=== PATIENT | male | born 2000 | race Caucasian/White ===

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

== ENCOUNTER 2019-05-03 11:29 | Emergency (ER) | payer OTHER ==
[~2019-05-03] VITALS: Ht 182.8 cm; Wt 122.5 kg
--- NOTE | ~2019-05-03 | EKG ---
[place], [place] ELECTROCARDIOGRAM REPORT NAME: OTIS CASTRO UNIT #: [id number] ROOM: DOCTOR: EPIPHANY DRAFT REPORT BIRTHDATE: [birth year] [facility] Test Date: 2019-05-03 Test Time: 11:52:17 Pat Name: OTIS CASTRO Department: Room: Gender: Media Relations Manager: April Bess : 2000 Requested By: STEVEN CASTILLO Order Number: [id number] Reading MD: Matthew Sanchez MD Measurements Intervals [place]: 86 P: 22 [place]: 139 QRS: -22 QRSD: 94 T: 10 QT: 351 QTc: 420 Interpretive Statements Marked sinus arrhythmia No previous ECG available for comparison Electronically Signed On 05-04-2019 8:34:22 PST by Matthew Sanchez MD CM:EKGRPT:ELECTROCARDIOGRAM REPORT [id number] STEVEN ALVAREZ DRAFT REPORT STEVEN CASTILLO M.D.
== END 2019-05-03 12:30 | disposition home or self-care (01) ==
LOC: ED 11:29
DX: T75.4XXA Electrocution, initial encounter (principal); W86.8XXA Exposure to other electric current, initial encounter; Y93.89 Activity, other specified; Y92.89 Other specified places as the place of occurrence of the external cause; Y99.0 Civilian activity done for income or pay

== ENCOUNTER 2020-11-09 21:55 | Emergency (ER) | payer SELFPAY | END 2020-11-09 22:41 | disposition home or self-care (01) | LOC: ED 21:55 | DX: J06.9 Acute upper respiratory infection, unspecified (principal) ==

== ENCOUNTER 2020-11-14 23:02 | Emergency (ER) | payer SELFPAY ==
[~2020-11-14] VITALS: Ht 182.8 cm; Wt 130.6 kg
[2020-11-15] MEDS ORDERED: ZITHROMAX250 MG PO (02:39)
== END 2020-11-15 03:05 | disposition home or self-care (01) ==
LOC: ED 23:02
DX: U07.1 COVID-19 (principal); J12.82 Pneumonia due to coronavirus disease 2019

== ENCOUNTER 2021-06-20 13:15 | Emergency (ER) | payer SELFPAY ==
[2021-06-20] MEDS ORDERED: VIBRA-TAB100 MG PO (13:59)
== END 2021-06-20 14:15 | disposition home or self-care (01) ==
LOC: ED 13:15
DX: L73.9 Follicular disorder, unspecified (principal)

== ENCOUNTER 2021-11-08 13:24 | Emergency (ER) | payer OTHER ==
[~2021-11-08 13:24] MED LIST changes: +VIBRA-TAB100 MG PO
[2021-11-08] MEDS ORDERED: Motrin,Rufen800 MG PO (18:29)
[2021-11-08] MEDS ORDERED: CYCLOBENZAPRINE5 M3 PO (18:29)
== END 2021-11-08 18:43 | disposition home or self-care (01) ==
LOC: ED 13:24
DX: S39.012A Strain of muscle, fascia and tendon of lower back, initial encounter (principal); W01.0XXA Fall on same level from slipping, tripping and stumbling without subsequent striking against object, initial encounter; Y93.89 Activity, other specified; Y92.89 Other specified places as the place of occurrence of the external cause; Y99.8 Other external cause status

== ENCOUNTER 2021-12-27 11:58 | Emergency (ER) | payer SELFPAY ==
[~2021-12-27] VITALS: Ht 182.8 cm; Wt 122.5 kg
[~2021-12-27 11:58] MED LIST changes: +CYCLOBENZAPRINE5 M3 PO
[2021-12-27] MEDS ORDERED: CEPHALEXIN500 M1 PO (14:05)
[2021-12-27] MEDS ORDERED: SEPTDS PO (14:05)
== END 2021-12-27 14:18 | disposition home or self-care (01) ==
LOC: ED 11:58
DX: L03.311 Cellulitis of abdominal wall (principal); L02.415 Cutaneous abscess of right lower limb

== ENCOUNTER 2023-02-17 14:48 | Emergency (ER) | payer OTHER ==
[~2023-02-17] VITALS: Ht 182.8 cm; Wt 127.0 kg
[~2023-02-17 14:48] MED LIST changes: +CEPHALEXIN500 M1 PO; +SEPTDS PO
[2023-02-17 16:05] LABS: BASO % 0.3 % (0.0-1.0); EOS % 0.4 % (1.0-4.0); HEMATOCRIT 49.1 % (42.0-52.0); LYMPH # 1.8 10*3/uL (1.3-4.4); LYMPH % 24.7 % (27.0-41.0); MEAN CELL VOLUME 86.3 fl (80.0-94.0); MEAN CORPUSCULAR HGB 28.8 pg (27.0-31.0); MEAN CORPUSCULAR HGB CONC 33.4 g/dl (33.0-37.0); MEAN PLATELET VOLUME 10.2 fl (9.6-12.3); MONO # 0.5 10*3/uL (0.1-1.0); MONO % 7.1 % (3.0-9.0); NEUT % 67.4 % (47.0-73.0); PLATELET COUNT AUTOMATED 197 10*3/uL (130-400); RED BLOOD COUNT 5.69 10*6/uL (4.50-5.90); RED CELL DISTRI WIDTH 13.2 % (0-14.5); WHITE BLOOD COUNT 7.4 10*3/uL (4.8-10.8)
[2023-02-17 16:28] LABS: ALKALINE PHOSPHATASE 137 U/L (46-116); BUN 10 mg/dl (9-23); CHLORIDE 107 mmol/L (98-107); LIPASE 34 U/L (12-53); POTASSIUM 4.3 mmol/L (3.4-5.1); SGPT/ALT 42 U/L (10-49); TOTAL PROTEIN 7.6 gm/dL (6.0-8.0)
[2023-02-17] MEDS ORDERED: MELOXICAM15 MG PO (16:47)
== END 2023-02-17 17:02 | disposition home or self-care (01) ==
LOC: ED 14:48
PROVIDERS: Emergency Medicine
DX: R10.11 Right upper quadrant pain (principal); F90.9 Attention-deficit hyperactivity disorder, unspecified type; F17.200 Nicotine dependence, unspecified, uncomplicated

== ENCOUNTER 2023-05-01 04:30 | Emergency (ER) | payer SELFPAY ==
[~2023-05-01] VITALS: Ht 185.4 cm; Wt 122.5 kg
[~2023-05-01 04:30] MED LIST changes: +MELOXICAM15 MG PO
[2023-05-01 04:50] LABS: BASO % 0.6 % (0.0-1.0); EOS # 0.1 10*3/uL (0.0-0.4); EOS % 1.7 % (1.0-4.0); HEMATOCRIT 48.9 % (42.0-52.0); LYMPH # 2.3 10*3/uL (1.3-4.4); LYMPH % 33.2 % (27.0-41.0); MEAN CELL VOLUME 87.9 fl (80.0-94.0); MEAN CORPUSCULAR HGB 28.8 pg (27.0-31.0); MEAN CORPUSCULAR HGB CONC 32.7 g/dl (33.0-37.0); MEAN PLATELET VOLUME 10.2 fl (9.6-12.3); MONO # 0.5 10*3/uL (0.1-1.0); MONO % 7.4 % (3.0-9.0); NEUT # 3.9 10*3/uL (2.3-7.9); PLATELET COUNT AUTOMATED 196 10*3/uL (130-400); RED BLOOD COUNT 5.56 10*6/uL (4.50-5.90); RED CELL DISTRI WIDTH 13.6 % (0-14.5); WHITE BLOOD COUNT 6.9 10*3/uL (4.8-10.8)
[2023-05-01 05:03] LABS: ACT PARTIAL THROMBO TIME 27.4 SECONDS (20.0-32.1)
[2023-05-01 05:15] LABS: ALKALINE PHOSPHATASE 132 U/L (46-116); BUN 12 mg/dl (9-23); CHLORIDE 108 mmol/L (98-107); ETHYL ALCOHOL < 3.0 mg/dl (<3); LIPASE 36 U/L (12-53); POTASSIUM 4.5 mmol/L (3.4-5.1); SGPT/ALT 63 U/L (5-49)
[2023-05-01 05:40] LABS: BILIRUBIN Negative (Negative); BLOOD Negative (Negative); CLARITY Clear (Clear); COLOR Yellow (Yellow); GLUCOSE Negative (Negative); KETONE Negative (Negative); LEUKO ESTERASE Negative (Negative); NITRITE Negative (Negative); PH 6.5 (4.5-8.0)
[2023-05-01 05:42] LABS: URINE AMPHETAMINES Negative (1000ng/ml); URINE BARBITURATES Negative (200ng/ml); URINE BENZODIAZEPINES Negative (200ng/ml); URINE CANNABINOIDS (THC) Negative (50ng/ml); URINE COCAINE Negative (300ng/ml); URINE METHADONE Negative (300ng/ml); URINE OPIATES Negative (300ng/ml); URINE PHENCYCLIDINE Negative (25ng/ml)
[2023-05-01 06:07] LABS: BACTERIA 1+; RBC 0-2 rbc/hpf (0-2); WBC 0-2 wbc/hpf (0-5)
[2023-05-01] MEDS ORDERED: PEPCID AC10 M2 PO (06:21)
== END 2023-05-01 06:23 | disposition home or self-care (01) ==
LOC: ED 04:30
PROVIDERS: Internal Medicine
DX: K21.9 Gastro-esophageal reflux disease without esophagitis (principal); F90.9 Attention-deficit hyperactivity disorder, unspecified type; Z79.899 Other long term (current) drug therapy

== ENCOUNTER 2023-05-05 14:37 | Emergency (ER) | payer SELFPAY ==
[~2023-05-05 14:37] MED LIST changes: +PEPCID AC10 M2 PO
== END 2023-05-05 16:59 | disposition home or self-care (01) ==
LOC: ED 14:37
DX: S69.91XA Unspecified injury of right wrist, hand and finger(s), initial encounter (principal); K21.9 Gastro-esophageal reflux disease without esophagitis; F90.9 Attention-deficit hyperactivity disorder, unspecified type; X50.1XXA Overexertion from prolonged static or awkward postures, initial encounter; Y93.89 Activity, other specified; Y92.89 Other specified places as the place of occurrence of the external cause; Y99.8 Other external cause status

== ENCOUNTER 2023-06-28 10:17 | Emergency (ER) | payer SELFPAY ==
[~2023-06-28] VITALS: Wt 122.5 kg
[2023-06-28] MEDS ORDERED: ONDANSETRON4 MG SL (12:33)
== END 2023-06-28 13:21 | disposition home or self-care (01) ==
LOC: ED 10:17
DX: K52.9 Noninfective gastroenteritis and colitis, unspecified (principal); F90.9 Attention-deficit hyperactivity disorder, unspecified type; R11.2 Nausea with vomiting, unspecified; R51.9 Headache, unspecified

== ENCOUNTER 2023-07-19 11:14 | Emergency (ER) | payer SELFPAY ==
[~2023-07-19] VITALS: Ht 182.8 cm; Wt 122.5 kg
[~2023-07-19 11:14] MED LIST changes: +ONDANSETRON4 MG SL
== END 2023-07-19 14:31 | disposition home or self-care (01) ==
LOC: ED 11:14
DX: M54.50 Low back pain, unspecified (principal); M54.6 Pain in thoracic spine; F90.9 Attention-deficit hyperactivity disorder, unspecified type

== ENCOUNTER 2023-09-18 07:48 | Emergency (ER) | payer SELFPAY ==
[~2023-09-18] VITALS: Ht 182.8 cm; Wt 122.5 kg
== END 2023-09-18 09:24 | disposition home or self-care (01) ==
LOC: ED 07:48
DX: B07.0 Plantar wart (principal); F90.9 Attention-deficit hyperactivity disorder, unspecified type

== ENCOUNTER 2023-11-25 13:18 | Emergency (ER) | payer SELFPAY ==
[~2023-11-25] VITALS: Ht 185.4 cm; Wt 127.0 kg
[2023-11-25] MEDS ORDERED: Ketorolac Tromethamine 15 MG/ML VIAL IV ONE (13:45)
[2023-11-25] MEDS ORDERED: SODIUM CHLORIDE 0.9% 1,000 ML IV ONE (13:45)
[2023-11-25 13:46] LABS: BILIRUBIN Negative (Negative); BLOOD Negative (Negative); CLARITY Clear (Clear); COLOR Yellow (Yellow); GLUCOSE Negative (Negative); KETONE Negative (Negative); LEUKO ESTERASE Negative (Negative); NITRITE Negative (Negative); PH 5.5 (4.5-8.0); SPECIFIC GRAVITY 1.025 (1.001-1.030); UROBILINOGEN 0.2 E.U./dl (0.0-1.0)
[2023-11-25 13:57] LABS: BASO % 0.6 % (0.0-1.0); EOS # 0.1 10*3/uL (0.0-0.4); EOS % 1.2 % (1.0-4.0); LYMPH # 1.3 10*3/uL (1.3-4.4); LYMPH % 26.5 % (27.0-41.0); MEAN CELL VOLUME 84.1 fl (80.0-94.0); MEAN CORPUSCULAR HGB 28.8 pg (27.0-31.0); MEAN CORPUSCULAR HGB CONC 34.2 g/dl (33.0-37.0); MEAN PLATELET VOLUME 10.2 fl (9.6-12.3); MONO # 0.4 10*3/uL (0.1-1.0); MONO % 7.3 % (3.0-9.0); NEUT # 3.2 10*3/uL (2.3-7.9); NEUT % 64.2 % (47.0-73.0); PLATELET COUNT AUTOMATED 196 10*3/uL (130-400); RED BLOOD COUNT 5.35 10*6/uL (4.50-5.90); RED CELL DISTRI WIDTH 13.2 % (0-14.5); WHITE BLOOD COUNT 5.1 10*3/uL (4.8-10.8)
[2023-11-25 14:01] LABS: RBC 0-2 rbc/hpf (0-2); WBC 0-2 wbc/hpf (0-5)
[2023-11-25 14:19] LABS: ALKALINE PHOSPHATASE 137 U/L (46-116); BUN 13 mg/dl (9-23); CHLORIDE 107 mmol/L (98-107); SGPT/ALT 50 U/L (5-49); TOTAL PROTEIN 7.2 gm/dL (6.0-8.0)
[2023-11-25] MEDS ORDERED: CYCLOBENZAPRINE10 MG PO (14:30)
[2023-11-25] MEDS ORDERED: ONDANSETRON4 MG SL (14:30)
== END 2023-11-25 15:06 | disposition home or self-care (01) ==
LOC: ED 13:18
PROVIDERS: Emergency Medicine
DX: R10.9 Unspecified abdominal pain (principal); R11.2 Nausea with vomiting, unspecified; R35.0 Frequency of micturition; F90.9 Attention-deficit hyperactivity disorder, unspecified type

== ENCOUNTER 2024-01-12 19:44 | Emergency (ER) | payer SELFPAY ==
[~2024-01-12] VITALS: Ht 185.4 cm; Wt 127.0 kg
[~2024-01-12 19:44] MED LIST changes: +CYCLOBENZAPRINE10 MG PO
[2024-01-12] MEDS ORDERED: Ketorolac Tromethamine 30 MG/ML VIAL IM ONE (20:05)
== END 2024-01-12 20:36 | disposition home or self-care (01) ==
LOC: ED 19:44
DX: S93.601A Unspecified sprain of right foot, initial encounter (principal); M54.50 Low back pain, unspecified; M25.561 Pain in right knee; F90.9 Attention-deficit hyperactivity disorder, unspecified type; X58.XXXA Exposure to other specified factors, initial encounter; Y93.01 Activity, walking, marching and hiking; Y92.009 Unspecified place in unspecified non-institutional (private) residence as the place of occurrence of the external cause; Y99.8 Other external cause status

== ENCOUNTER 2024-06-23 15:09 | Emergency (ER) | payer SELFPAY ==
[~2024-06-23] VITALS: Ht 182.8 cm; Wt 127.0 kg
[2024-06-23 15:45] LABS: BASO % 0.2 % (0.0-1.0); EOS # 0.1 10*3/uL (0.0-0.4); EOS % 1.4 % (1.0-4.0); HEMATOCRIT 47.2 % (42.0-52.0); MEAN CELL VOLUME 85.2 fl (80.0-94.0); MEAN CORPUSCULAR HGB 28.5 pg (27.0-31.0); MEAN CORPUSCULAR HGB CONC 33.5 g/dl (33.0-37.0); MEAN PLATELET VOLUME 10.2 fl (9.6-12.3); MONO # 0.4 10*3/uL (0.1-1.0); MONO % 8.2 % (3.0-9.0); NEUT % 59.9 % (47.0-73.0); PLATELET COUNT AUTOMATED 191 10*3/uL (130-400); RED BLOOD COUNT 5.54 10*6/uL (4.50-5.90); RED CELL DISTRI WIDTH 12.7 % (0-14.5)
[2024-06-23 16:05] LABS: BUN 15 mg/dl (9-23); CHLORIDE 107 mmol/L (98-107); POTASSIUM 3.8 mmol/L (3.4-5.1)
[2024-06-23] MEDS ORDERED: MELOXICAM15 MG PO (18:18)
== END 2024-06-23 18:29 | disposition home or self-care (01) ==
LOC: ED 15:09
PROVIDERS: Internal Medicine
DX: M94.0 Chondrocostal junction syndrome [Tietze] (principal); M25.512 Pain in left shoulder; F90.9 Attention-deficit hyperactivity disorder, unspecified type

== ENCOUNTER 2024-09-20 21:54 | Emergency (ER) | payer SELFPAY ==
[2024-09-20] MEDS ORDERED: SODIUM CHLORIDE 0.9% 1,000 ML IV ONE (22:15)
[2024-09-20] MEDS ORDERED: Ketorolac Tromethamine 15 MG/ML VIAL IV ONE (22:15)
[2024-09-20] MEDS ORDERED: Ondansetron Hydrochloride 4 MG/2 ML VIAL IV ONE (22:15)
[2024-09-20] MEDS ORDERED: Ondansetron4 MG PO (22:18)
[2024-09-20 22:27] LABS: BASO % 0.3 % (0.0-1.0); EOS # 0.1 10*3/uL (0.0-0.4); EOS % 0.9 % (1.0-4.0); HEMATOCRIT 46.4 % (42.0-52.0); MEAN CELL VOLUME 85.5 fl (80.0-94.0); MEAN CORPUSCULAR HGB 28.7 pg (27.0-31.0); MEAN CORPUSCULAR HGB CONC 33.6 g/dl (33.0-37.0); MEAN PLATELET VOLUME 10.3 fl (9.6-12.3); MONO # 0.6 10*3/uL (0.1-1.0); MONO % 8.4 % (3.0-9.0); NEUT # 4.3 10*3/uL (2.3-7.9); NEUT % 63.6 % (47.0-73.0); PLATELET COUNT AUTOMATED 214 10*3/uL (130-400); RED BLOOD COUNT 5.43 10*6/uL (4.50-5.90); RED CELL DISTRI WIDTH 13.2 % (0-14.5); WHITE BLOOD COUNT 6.8 10*3/uL (4.8-10.8)
[2024-09-20 22:42] LABS: ALKALINE PHOSPHATASE 130 U/L (46-116); BUN 21 mg/dl (9-23); CHLORIDE 106 mmol/L (98-107); POTASSIUM 4.1 mmol/L (3.4-5.1); SGPT/ALT 44 U/L (5-49); TOTAL PROTEIN 7.6 gm/dL (6.0-8.0)
[2024-09-20] MEDS ORDERED: Prochlorperazine Edisylate 10 MG/2 ML VIAL IV ONE (23:00)
[2024-09-20] MEDS ORDERED: Promethazine Hydrochloride 25 MG/ML VIAL IV ONE (23:00)
== END 2024-09-21 00:45 | disposition home or self-care (01) ==
LOC: ED 21:54
PROVIDERS: Nurse Practitioner Family
DX: K52.9 Noninfective gastroenteritis and colitis, unspecified (principal); R11.2 Nausea with vomiting, unspecified

== ENCOUNTER 2024-12-27 19:42 | Emergency (ER) | payer SELFPAY ==
[~2024-12-27] VITALS: Ht 182.8 cm; Wt 117.9 kg
[~2024-12-27 19:42] MED LIST changes: +Ondansetron4 MG PO
[2024-12-27] MEDS ORDERED: NAPROSYN500 MG PO (21:52)
== END 2024-12-27 22:02 | disposition home or self-care (01) ==
LOC: ED 19:42
DX: S63.601A Unspecified sprain of right thumb, initial encounter (principal); X50.1XXA Overexertion from prolonged static or awkward postures, initial encounter; Y93.89 Activity, other specified; Y92.89 Other specified places as the place of occurrence of the external cause; Y99.8 Other external cause status

== ENCOUNTER 2025-01-26 18:10 | Emergency (ER) | payer SELFPAY ==
[~2025-01-26] VITALS: Ht 182.8 cm; Wt 120.2 kg
[~2025-01-26 18:10] MED LIST changes: +NAPROSYN500 MG PO
[2025-01-26] MEDS ORDERED: SODIUM CHLORIDE 0.9% 1,000 ML IV ONE (19:00)
[2025-01-26 19:28] LABS: BASO # 0.0 10*3/uL (0.0-0.1); BASO % 0.4 % (0.0-1.0); EOS # 0.1 10*3/uL (0.0-0.4); EOS % 1.8 % (1.0-4.0); MEAN CELL VOLUME 84.5 fl (80.0-94.0); MEAN CORPUSCULAR HGB 28.3 pg (27.0-31.0); MEAN PLATELET VOLUME 10.6 fl (9.6-12.3); MONO # 0.5 10*3/uL (0.1-1.0); MONO % 6.4 % (3.0-9.0); NEUT # 4.7 10*3/uL (2.3-7.9); NEUT % 64.2 % (47.0-73.0); NUCLEATED RED BLOOD CELL 0.0 % (0.0-0.0); NUCLEATED RED BLOOD CELL 0.0 10*3/uL (0.0-0.0); PLATELET COUNT AUTOMATED 197 10*3/uL (130-400); RED CELL DISTRI WIDTH 13.1 % (0-14.5)
[2025-01-26 19:51] LABS: BUN 12 mg/dl (9-23)
== END 2025-01-26 20:55 | disposition home or self-care (01) ==
LOC: ED 18:10
PROVIDERS: Nurse Practitioner Family
DX: R55 Syncope and collapse (principal); R42 Dizziness and giddiness; K21.9 Gastro-esophageal reflux disease without esophagitis; Z86.16 Personal history of COVID-19

== ENCOUNTER 2025-03-08 13:44 | Emergency (ER) | payer SELFPAY ==
[~2025-03-08] VITALS: Ht 182.8 cm; Wt 120.2 kg
[2025-03-08] MEDS ORDERED: SODIUM CHLORIDE 0.9% 500 ML IV ONE (14:10)
[2025-03-08 14:27] LABS: BASO # 0.0 10*3/uL (0.0-0.1); BASO % 0.2 % (0.0-1.0); EOS # 0.1 10*3/uL (0.0-0.4); EOS % 1.4 % (1.0-4.0); MEAN CELL VOLUME 85.2 fl (80.0-94.0); MEAN CORPUSCULAR HGB 28.2 pg (27.0-31.0); MEAN PLATELET VOLUME 9.9 fl (9.6-12.3); MONO # 0.4 10*3/uL (0.1-1.0); MONO % 9.6 % (3.0-9.0); NEUT # 2.9 10*3/uL (2.3-7.9); NEUT % 66.8 % (47.0-73.0); NUCLEATED RED BLOOD CELL 0.0 % (0.0-0.0); NUCLEATED RED BLOOD CELL 0.0 10*3/uL (0.0-0.0); PLATELET COUNT AUTOMATED 164 10*3/uL (130-400); RED CELL DISTRI WIDTH 13.0 % (0-14.5)
[2025-03-08 14:52] LABS: BUN 13 mg/dl (9-23)
[2025-03-08 15:22] LABS: URINE AMPHETAMINES Negative (1000ng/ml); URINE BARBITURATES Negative (200ng/ml); URINE BENZODIAZEPINES Negative (200ng/ml); URINE CANNABINOIDS (THC) Negative (50ng/ml); URINE COCAINE Negative (300ng/ml); URINE METHADONE Negative (300ng/ml); URINE OPIATES Negative (300ng/ml); URINE PHENCYCLIDINE Negative (25ng/ml)
== END 2025-03-08 16:11 | disposition home or self-care (01) ==
LOC: ED 13:44
PROVIDERS: Emergency Medicine
DX: I95.1 Orthostatic hypotension (principal)

== ENCOUNTER 2025-05-04 08:35 | Emergency (ER) | payer SELFPAY ==
[~2025-05-04] VITALS: Ht 182.8 cm; Wt 122.5 kg
[2025-05-04] MEDS ORDERED: SODIUM CHLORIDE 0.9% 1,000 ML IV ONE ×2 (11:15→11:49)
[2025-05-04] MEDS ORDERED: ACETAMINOPHEN 325 MG TAB PO ONE (11:15)
[2025-05-04 11:26] LABS: BASO # 0.0 10*3/uL (0.0-0.1); BASO % 0.3 % (0.0-1.0); EOS # 0.1 10*3/uL (0.0-0.4); EOS % 1.7 % (1.0-4.0); MEAN CELL VOLUME 84.7 fl (80.0-94.0); MEAN CORPUSCULAR HGB 28.7 pg (27.0-31.0); MEAN PLATELET VOLUME 9.7 fl (9.6-12.3); MONO # 0.4 10*3/uL (0.1-1.0); MONO % 6.5 % (3.0-9.0); NEUT # 4.0 10*3/uL (2.3-7.9); NEUT % 60.9 % (47.0-73.0); NUCLEATED RED BLOOD CELL 0.0 % (0.0-0.0); NUCLEATED RED BLOOD CELL 0.0 10*3/uL (0.0-0.0); PLATELET COUNT AUTOMATED 181 10*3/uL (130-400); RED CELL DISTRI WIDTH 13.2 % (0-14.5)
[2025-05-04 11:46] LABS: BUN 9 mg/dl (9-23)
[2025-05-04] MEDS ORDERED: ACETAMINOPHEN 325 MG TAB ONE (11:49)
== END 2025-05-04 13:41 | disposition home or self-care (01) ==
LOC: ED 08:35
PROVIDERS: Nurse Practitioner Family
DX: S00.83XA Contusion of other part of head, initial encounter (principal); R55 Syncope and collapse; H53.8 Other visual disturbances; W18.39XA Other fall on same level, initial encounter; Y93.89 Activity, other specified; Y92.89 Other specified places as the place of occurrence of the external cause; Y99.8 Other external cause status

== ENCOUNTER 2025-06-16 18:42 | Emergency (ER) | payer SELFPAY ==
[~2025-06-16] VITALS: Ht 182.8 cm; Wt 122.5 kg
[2025-06-16 19:57] LABS: BASO # 0.0 10*3/uL (0.0-0.1); BASO % 0.5 % (0.0-1.0); EOS # 0.1 10*3/uL (0.0-0.4); EOS % 1.5 % (1.0-4.0); MEAN CELL VOLUME 85.7 fl (80.0-94.0); MEAN CORPUSCULAR HGB 29.0 pg (27.0-31.0); MEAN PLATELET VOLUME 10.0 fl (9.6-12.3); MONO # 0.6 10*3/uL (0.1-1.0); MONO % 7.5 % (3.0-9.0); NEUT # 5.2 10*3/uL (2.3-7.9); NEUT % 65.9 % (47.0-73.0); NUCLEATED RED BLOOD CELL 0.0 % (0.0-0.0); NUCLEATED RED BLOOD CELL 0.0 10*3/uL (0.0-0.0); PLATELET COUNT AUTOMATED 211 10*3/uL (130-400); RED CELL DISTRI WIDTH 13.1 % (0-14.5)
[2025-06-16 20:22] LABS: BUN 16 mg/dl (9-23)
[2025-06-16] MEDS ORDERED: METHOCARBAMOL750 M1 PO (22:32)
[2025-06-16] MEDS ORDERED: METHOCARBAMOL 500 MG TAB PO ONE (22:35)
== END 2025-06-16 22:32 | disposition home or self-care (01) ==
LOC: ED 18:42
PROVIDERS: Nurse Practitioner Family
DX: B34.9 Viral infection, unspecified (principal); M79.18 Myalgia, other site; K21.9 Gastro-esophageal reflux disease without esophagitis; F90.9 Attention-deficit hyperactivity disorder, unspecified type; Z86.16 Personal history of COVID-19; Z20.822 Contact with and (suspected) exposure to COVID-19